=== PATIENT | male | born 1990 | race Caucasian/White ===

== ENCOUNTER 2021-02-20 13:28 | Emergency (ER) | payer OTHER ==
[~2021-02-20] VITALS: Ht 180.3 cm; Wt 89.0 kg
[2021-02-20 14:27] VITALS: BP 125/80
[2021-02-20 14:43] LABS: HEPATITIS B SURFACE AB 548.4 mIU/mL
[2021-02-20 14:53] LABS: HEPATITIS B SURFACE ANTIGEN NEGATIVE
[2021-02-21 05:08] LABS: HIV SCREEN 4G Non Reactive (Non Reactive)
== END 2021-02-20 14:29 | disposition home or self-care (01) ==
LOC: ER 13:28
DX: Z77.21 Contact with and (suspected) exposure to potentially hazardous body fluids (principal)
CPT/HCPCS: 36415; 87389; 99283